=== PATIENT | female | born 1990 | race Caucasian/White ===

== ENCOUNTER 2019-09-01 21:44 | Emergency (ER) | payer SELFPAY ==
[~2019-09-01] VITALS: Ht 162.6 cm; Wt 53.5 kg
--- NOTE | 2019-09-01 22:45 | NUR ---
ED Nurse Note: pt presents to ED with N/V/D that started at 2130 last PM. pt reports that she did not stop until 0530 this AM. pt states that she was traveling on a train from [place] prior to onset of symptoms. she also states thats he feels weak and woke up sweating, pt was afebrile in triage. she took 2 advil earlier today and has been able to keep fluids down since 0530 this AM. pt denies abd pain or any urinary symptoms at this time.
[2019-09-01 22:50] VITALS: BP 105/74
--- NOTE | 2019-09-01 22:59 | Emergency Room Report ---
History of Present Illness General Chief Complaint: Nausea, Vomiting, and Diarrhea Source: Patient Present Illness HPI This is a 29-year-old female with no past medical history. She presents with complaint of fever with nausea vomiting and diarrhea. Onset last night. She is is from [place] and is been traveling for work. She has been to [place], [facility] and now here. She checked it last night and developed fever and body pain. Had several episode of vomiting and diarrhea. Vomiting and diarrhea resolved. Now she is having fever and body pain patient took Advil which helped. No cough or congestion. No runny nose. No sick contact that she knows of. Allergies: Coded Allergies: No Known Allergies (Unverified , 09/01/19) Patient History Past Medical History: see triage record, old chart reviewed Past Surgical History: none Pertinent Family History: none Social History: Denies: smoking Last Menstrual Period: 08/27/19 Now: No Immunizations: other Reviewed Nursing Documentation: PMH: Agreed; PSxH: Agreed Nursing Documentation-PMH Past Medical History: No Stated History Review of Systems Constitutional: Reports: fever Eye: Denies: eye pain, blurred vision ENT: Denies: ear pain, nose congestion, throat swelling Respiratory: Denies: cough, shortness of breath Cardiovascular: Denies: chest pain, palpitations Gastrointestinal: Reports: abdominal pain, diarrhea, nausea, vomiting Musculoskeletal: Denies: back pain, joint pain Skin: Denies: rash Neurological: Denies: headache, numbness Endocrine: Denies: increased thirst, increased urine Hematologic/Lymphatic: Denies: easy bruising All Other Systems: negative except mentioned in HPI Physical Exam Vital Signs Date Time Temp Pulse Resp B/P (MAP) Pulse Ox O2 Delivery O2 Flow Rate FiO2 09/01/19 21:54 98.1 95 18 105/74 (84) 96 Room Air Vitals normal Sp02 EP Interpretation: reviewed, normal General Appearance: well appearing, no apparent distress, alert Head: normocephalic, atraumatic Eyes: bilateral eye PERRL, bilateral eye EOMI ENT: hearing grossly normal, normal pharynx Neck: full range of motion, supple, no meningismus Respiratory: chest non-tender, lungs clear, normal breath sounds Cardiovascular #1: regular rate, rhythm, no murmur Gastrointestinal: normal bowel sounds, non tender, no mass, no organomegaly, no bruit, non-distended Musculoskeletal: back normal, normal range of motion, gait/station normal Psychiatric: mood/affect normal Medical Decision Making Diagnostic Impression: Primary Impression: Nausea, vomiting, and diarrhea Additional Impression: UTI (urinary tract infection) Qualified Codes: N30.00 - Acute cystitis without hematuria ER Course Patient presents with flulike illness with nausea vomiting and diarrhea. Most likely viral gastroenteritis. She felt better now. No evidence of any influenza based on the test. She looks well. No evidence of acute abdomen. Will discharge home. Last Vital Signs Date Time Temp Pulse Resp B/P (MAP) Pulse Ox O2 Delivery O2 Flow Rate FiO2 09/01/19 22:50 98.1 87 18 105/74 96 Room Air Status: improved Disposition: HOME, SELF-CARE Condition: Stable Scripts Nitrofurantoin Monohyd/M-Cryst (Nitrofurantoin Comal-Mcr 100 mg) 100 Mg Capsule 100 MG ORAL Q12H, #14 CAP Prov: Jacek See MD 09/02/19 Referrals: NON PHYSICIAN (PCP) Additional Instructions: Rest. Increase fluids. May take Advil or Motrin for fever. Follow-up with your doctor in 7 days for recheck. Return if worse. Jacek See MD Sep 01, 2019 22:59
[2019-09-01] MEDS ORDERED: Ketorolac 30mg Inj IV ONE (23:00)
[2019-09-01 23:05] LABS: APPEARANCE,URINE SLIGHTLY CLOUDY; BILIRUBIN, URINE 1+ (NEGATIVE); GLUCOSE, URINE (UA) NEGATIVE (NEGATIVE); KETONES,URINE NEGATIVE (NEGATIVE); LEUKOCYTE ESTERASE ,URINE 1+ (NEGATIVE); NITRITE,URINE NEGATIVE (NEGATIVE); PH,URINE 5 (4.5-8.0); PROTEIN,URINE 2+ (NEGATIVE); UROBILINOGEN,URINE NORMAL MG/DL (0.0-1.0)
[2019-09-01 23:07] LABS: COLOR,URINE YELLOW
[2019-09-01 23:13] LABS: BASOPHILS % (AUTO) 0.8 % (0.0-2.0); HEMATOCRIT 42.9 % (37.0-47.0); HEMOGLOBIN 13.9 G/DL (12.0-16.0); LYMPHOCYTES % (AUTO) 14.5 % (20.0-45.0); MEAN CORPUSCULAR VOLUME 93 FL (80-99); MONOCYTES % (AUTO) 7.1 % (1.0-10.0); NEUTROPHILS % (AUTO) 76.6 % (45.0-75.0); PLATELET COUNT 166 K/UL (150-450); RED BLOOD COUNT 4.64 M/UL (4.20-5.40); RED CELL DISTRIBUTION WIDTH 13.2 % (11.6-14.8)
[2019-09-01 23:22] LABS: ANION GAP 10 mmol/L (5-15); BLOOD UREA NITROGEN 16 mg/dL (7-18); CALCIUM 9.2 MG/DL (8.5-10.1); CARBON DIOXIDE 28 MMOL/L (21-32); CHLORIDE 99 MMOL/L (98-107); CREATININE 0.8 MG/DL (0.55-1.30); POTASSIUM 3.4 MMOL/L (3.5-5.1); SODIUM 137 MMOL/L (136-145)
[2019-09-02] MEDS ORDERED: cefTRIAXone 1 GM in NS 55 ML IVPB ONE ×2
[2019-09-02] MEDS ORDERED: MACROBID100 MG ORAL (00:18)
[2019-09-02 00:23] VITALS: BP 105/74
--- NOTE | 2019-09-02 00:23 | NUR ---
ER DISCHARGE NOTE: Patient is cleared to be discharged per ERMD, pt is aox4, on room air, with stable vital signs. pt was given dc and prescription instructions, pt was able to verbalize understanding, pt id band and iv site removed without complications. pt is able to ambulate with steady gait. pt took all belongings.
== END 2019-09-02 00:25 | disposition home or self-care (01) ==
LOC: EMR 22:45
DX: R11.2 Nausea with vomiting, unspecified (principal); R19.7 Diarrhea, unspecified; N30.00 Acute cystitis without hematuria
CPT/HCPCS: 36415; 80048; 81003; 81025; 85025; 86710; 87086; 96361; 96365; 96375; 99284; J0696; J1885; J7030